=== PATIENT | female | born 1965 | race Caucasian/White ===

== ENCOUNTER 2023-03-18 11:00 | Emergency (ER) | payer BC ==
[~2023-03-18] VITALS: Ht 162.6 cm; Wt 63.5 kg
[2023-03-18 11:25] VITALS: BP_SYST 189; PULSE 65; RESP 18; TEMP 97.6; O2SAT 97
[2023-03-18] MEDS ORDERED: MECLIZINE HCL 25 MG TABLET (ANITVERT) PO ONE (11:45)
[2023-03-18] MEDS ORDERED: NACL 0.9% 1,000 ML IV ONE (11:45)
[2023-03-18 12:37] LABS: CALCIUM 9.6 mg/dL (8.4-11.0); CREATININE 0.74 mg/dL (0.55-1.30); POTASSIUM 4.2 mmol/L (3.5-5.1)
[2023-03-18] MEDS ORDERED: MECL-225 PO (13:31)
[2023-03-18 13:51] VITALS: BP_SYST 151; PULSE 67; RESP 16; TEMP 97.9; O2SAT 97
[2023-03-18 14:46] LABS: BASOPHILS # (AUTO) 0.1 K/uL (0.0-0.2); BASOPHILS % (AUTO) 0.9 % (0.0-2.0); EOSINOPHILS # (AUTO) 0.4 K/uL (0.0-0.4); EOSINOPHILS % (AUTO) 5.4 % (0.0-4.0); HEMATOCRIT 42.5 % (36-48); HEMOGLOBIN 14.6 g/dL (12.0-16.0); LYMPHOCYTES # (AUTO) 2.7 K/uL (1.0-5.5); LYMPHOCYTES % (AUTO) 36.2 % (20.5-51.5); MEAN CORPUSCULAR HEMOGLOBIN 30 pg (27-31); MEAN CORPUSCULAR HGB CONC 34 % (32-36); MEAN CORPUSCULAR VOLUME 86 fL (79.0-98.0); MONOCYTES # (AUTO) 0.3 K/uL (0.0-1.0); MONOCYTES % (AUTO) 4.5 % (1.7-9.3); NEUTROPHILS # (AUTO) 3.9 K/uL (1.8-7.7); PLATELET COUNT (AUTO) 281 K/uL (130-430); RED BLOOD CELL COUNT(AUTO) 4.93 MIL/uL (4.2-6.2); RED CELL DISTRIBUTION WIDTH 12.6 % (9.0-15.0); WHITE BLOOD COUNT (AUTO) 7.4 K/uL (4.8-10.8)
== END 2023-03-18 13:45 | disposition home or self-care (01) ==
LOC: SED 11:00
DX: H81.10 Benign paroxysmal vertigo, unspecified ear (principal); R11.0 Nausea; Z79.899 Other long term (current) drug therapy
CPT/HCPCS: 99283; 96360; 80048; 85025; 36415; J8597; J7030